=== PATIENT | male | born 1980 | race Caucasian/White ===

== ENCOUNTER 2018-02-13 11:19 | Emergency (ER) | payer OTHER ==
[~2018-02-13] VITALS: Ht 182.9 cm; Wt 90.4 kg
[2018-02-13] MEDS ORDERED: ATARAX,VISTARIL50 MG PO (13:17)
[2018-02-13] MEDS ORDERED: MEDROL DOSEPAK4 MG PO (13:17)
[2018-02-13 13:33] VITALS: BP 100/60
== END 2018-02-13 13:34 | disposition home or self-care (01) ==
LOC: EME 11:19
DX: L25.9 Unspecified contact dermatitis, unspecified cause (principal)
CPT/HCPCS: 99281; 99283; J7512; Q0177